=== PATIENT | male | born 1975 | race Caucasian/White ===

== ENCOUNTER 2018-11-10 09:26 | Emergency (ER) | payer SELFPAY ==
[~2018-11-10] VITALS: Ht 175.3 cm; Wt 74.2 kg
[~2018-11-10 09:26] MED LIST: METF-849 PO
[2018-11-10 09:30] VITALS: Ht 175.3 cm; Wt 74.2 kg
[2018-11-10] MEDS ORDERED: FLUORESCEIN STRIP LEFT EYE ONE (10:00)
[2018-11-10] MEDS ORDERED: ERYT1OIN6 LEFT EYE (12:00)
[2018-11-10] MEDS ORDERED: IBUP-1542 PO (12:01)
--- NOTE | 2018-11-10 12:04 | ERD ---
ER Documentation Chief Complaint Chief Complaint lt eye blurry vision x 8 days , had pain behind eye on 1st day HPI 43-year-old male presented to ED for left eye pain and blurry vision x8 days. 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 He does not remember any exposure in the eye he denies any presence of foreign body, denies any presence of discharge, crust, irritation. Patient states that the initial symptoms began with 8 out of 10 pain and now he just had blurry vision patient states the pain has resided . Patient denies allergies to medications patient has a history of diabetes and is well controlled on medications. ROS All systems reviewed and are negative except as per history of present illness. Medications Home Meds Active Scripts Ibuprofen* (Motrin*) 600 Mg Tab, 600 MG PO Q6, #30 TAB Prov:АНДРЕЙ GIRON PA-C 11/10/18 Erythromycin Base (Erythromycin) 1 Gm Oint...g., 1 APPLIC LEFT EYE QID for 7 Days Prov:АНДРЕЙ GIRON PA-C 11/10/18 Metformin* (Glucophage*) 500 Mg Tab, 500 MG PO BID, #30 TAB Prov:KEITH MAJOR MD 09/18/15 Allergies Allergies: Coded Allergies: No Known Allergy (Unverified , 09/18/15) PMhx/Soc History of Surgery: No Anesthesia Reaction: No Hx Neurological Disorder: No Hx Respiratory Disorders: No Hx Cardiac Disorders: No Hx Psychiatric Problems: No Hx Miscellaneous Medical Probl: Yes (Dm, does not take meds) Hx Alcohol Use: Yes Hx Substance Use: Yes Hx Tobacco Use: No Smoking Status: Never smoker FmHx Family History: diabetes Physical Exam Vitals Vital Signs Date Temp Pulse Resp B/P (MAP) Pulse Ox O2 O2 Flow FiO2 Time Delivery Rate 11/10/18 98.1 79 18 139/80 100 Room Air 12:10 (99) 11/10/18 98.1 78 18 178/82 99 09:30 (114) Physical Exam GENERAL: The patient is well-appearing, well-nourished, in no acute distress HEENT: Atraumatic. Conjunctivae are pink. Pupils equal, round, and reactive to light. There is no scleral icterus. Tympanic membranes clear bilaterally. Oropharynx clear. No nystagmus or photophobia. NECK: C-spine is soft and supple. There is no meningismus. There is no cervical lymphadenopathy. CHEST: Clear to auscultation bilaterally. There are no rales, wheezes or rhonchi. EXTREMITIES: Equal pulses bilaterally. There is no peripheral clubbing, cyanosis or edema. No focal swelling or erythema. Full range of motion. Grossly neurovascularly intact. NEUROLOGIC: Alert and oriented. Cranial nerves II through V intact. Motor strength in all 4 extremities with 5 out of 5 strength. Sensation grossly intact. Normal speech and gait. Results 24 hrs Current Medications Medications Dose Sig/Armando Start Time Status Last (Trade) Ordered Route PRN Stop Time Admin Dose Reason Admin Tetracaine 1 drop QAM LEFT 11/11/18 DC HCl EYE 09:00 (Tetracaine 11/11/18 09:00 0.5% Steri-Unit Gloria) Fluorescein 1 strip ONCE ONCE 11/10/18 DC Sodium LEFT EYE 10:00 ([id number] 11/10/18 10:02 p) Procedures/MDM ED course: Visual acuity Michael-Pen Arceo lamp examination with fluorescein and tetracaine Soft tissue ultrasound The patient was stable throughout the ED course. The patient and/or family informed of laboratory and diagnostic imaging results throughout the ED course. . Diagnostic imaging: Read by radiologist PROCEDURE: Ultrasound left eye CLINICAL INDICATION: Evaluate for retinal detachment. TECHNIQUE: Sonographic evaluation of the left eye was performed with arroyo scale and color imaging. Images were reviewed on a high-resolution PACS workstation. COMPARISON: None available FINDINGS: No sonographic evidence of retinal detachment IMPRESSION: No sonogram evidence of retinal detachment RPTAT: QQ Physician Denzel Date Time Electronically viewed and signed by Physician Denzel on 11/10/2018 12:05 Procedures: Arceo lamp examination: Indicated corneal abrasion of left eye Medications given in ER: Tetracaine Patient tolerated medication well with no adverse reactions. Patient reported improvement in pain. ision Assessment Label Left Visual Acuity Degree 20/70 Vision Assessment Label Right Visual Acuity Degree 20/30 Vision Assessment Label Bilateral Visual Acuity Degree 20/30 Visual Assistive Devices None Medical decision makin-year-old male presented to ED for left eye irritation. 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 Patient has history of diabetes but is well controlled on medications. Visual acuity was noted for decreased vision in the left eye compared to the right eye, initial Michael-Pen examination revealed left eye pressure 37 right eye pressure 30. Patient was given tetracaine floor seen strip and Arceo sling examination. Patient was noted for increased uptake of floor seen in the inferior aspect of his left eye. The eyelid was inverted and no presence of foreign body in upper eyelid or lower eyelid. Patient has good eye ocular movement and no signs of ruptured globe patient was sent for soft tissue ultrasound to rule out detached retina. Ultrasound came back unremarkable. Reevaluation of the Michael-Pen revealed left eye pressure 34 right eye pressure 26. Low suspicion bacterial conjunctivitis, viral conjunctivitis, allergic conjunctivitis, acute glaucoma, corneal ulcer, retained eye foreign body, glaucoma, periorbital cellulitis, orbital cellulitis, hordeolum, dacrocystitis, globe rupture.Patient was advised that he has a corneal abrasion that he needs to follow-up with his primary care provider tomorrow regarding this visit. Patient was given resources for specialist and advised to make an appointment this week if he cannot get into his primary care provider. Patient was advised if symptoms worsen return to ER immediately. Patient is being discharged with prescription for ophthalmic erythromycin, ibuprofen. Patient was educated on proper use of medication. Patient's questions were answered upon discharge Prescription for home: Erythromycin Ibuprofen Discharge: At this time, patient is stable for discharge and outpatient management. I have instructed the patient to follow-up with his\her primary care physician in 1 to 2 days. I have discussed with the patient the possibility of needing to see a specialist for further work-up and imaging studies if symptoms persist. I have instructed the patient to promptly return to the ER for any new or worsening symptoms including increased pain, fever, nausea, vomiting, weakness or LOC. T he patient and\or family expressed understanding of and agreement with this plan. All questions were answered. Home care instructions were provided. Disclaimer: Inadvertent spelling and grammatical errors are likely due to EHR\dictation software use and do not reflect on the overall quality of patient care. Also, please note that the electronic time recorded on the note does not necessarily reflect the actual time of the patient encounter. Departure Diagnosis: Primary Impression: Corneal abrasion, left Encounter type: initial encounter Qualified Codes: S05.02XA - Injury of conjunctiva and corneal abrasion without foreign body, left eye, initial enco unter Additional Impression: Pain, eye, left Condition: Stable Patient Instructions: Corneal Abrasion Referrals: TONY VARGAS DOREEN T MD [facility] YOU HAVE RECEIVED A MEDICAL SCREENING EXAM AND THE RESULTS INDICATE THAT YOU DO NOT HAVE A CONDITION THAT REQUIRES URGENT TREATMENT IN THE EMERGENCY DEPARTMENT. FURTHER EVALUATION AND TREATMENT OF YOUR CONDITION CAN WAIT UNTIL YOU ARE SEEN IN YOUR DOCTORS OFFICE WITHIN THE NEXT 1-2 DAYS. IT IS YOUR RESPONSIBILITY TO MAKE AN APPOINTMENT FOR FOLOW-UP CARE. IF YOU HAVE A PRIMARY DOCTOR --you should call your primary doctor and schedule an appointment IF YOU DO NOT HAVE A PRIMARY DOCTOR YOU CAN CALL OUR PHYSICIAN REFERRAL HOTLINE AT IF YOU CAN NOT AFFORD TO SEE A PHYSICIAN YOU CAN CHOSE FROM THE FOLLOWING [facility] [address] [facility] [address] [facility]. [facility] [address] [facility] [address] [facility] [address] [facility]. [facility] [address] [facility] [facility] YOU HAVE RECEIVED A MEDICAL SCREENING EXAM AND THE RESULTS INDICATE THAT YOU DO NOT HAVE A CONDITION THAT REQUIRES URGENT TREATMENT IN THE EMERGENCY DEPARTMENT. FURTHER EVALUATION AND TREATMENT OF YOUR CONDITION CAN WAIT UNTIL YOU ARE SEEN IN YOUR DOCTORS OFFICE WITHIN THE NEXT 1-2 DAYS. IT IS YOUR RESPONSIBILITY TO MAKE AN APPOINTMENT FOR FOLOW-UP CARE. IF YOU HAVE A PRIMARY DOCTOR --you should call your primary doctor and schedule and appointment IF YOU DO NOT HAVE A PRIMARY DOCTOR YOU CAN CALL OUR PHYSICIAN REFERRAL HOTLINE AT . IF YOU CAN NOT AFFORD TO SEE A PHYSICIAN YOU CAN CHOSE FROM THE FOLLOWING [facility] IN[facility]UTIONS: [facility] [address] [place] [address] [facility] [address] [place] [address] [facility] [address] [place] [address] Additional Instructions: Visite a alva renny mari para un EXAMEN.Regrese a estas instalaciones si no se mejora krissy esperbamos o krissy le dijimos. АНДРЕЙ GIRON PA-C Nov 10, 2018 12:04
[2018-11-10 12:10] VITALS: BP 139/80; PULSE 79; RESP 18
[2018-11-11] MEDS ORDERED: TETRACAINE 0.5% 4 ML OPH LEFT EYE SCH (09:00)
== END 2018-11-10 12:11 | disposition home or self-care (01) ==
LOC: FTE 09:26
DX: S05.02XA Injury of conjunctiva and corneal abrasion without foreign body, left eye, initial encounter (principal); E11.9 Type 2 diabetes mellitus without complications; X58.XXXA Exposure to other specified factors, initial encounter; Y92.9 Unspecified place or not applicable
CPT/HCPCS: 76536